=== PATIENT | male | born 1995 | race Caucasian/White ===

== ENCOUNTER 2023-04-18 20:16 | Emergency (ER) | payer BC, SELFPAY ==
--- OUTSIDE RECORDS SUMMARY | 2023-04-18 20:19 | XMS REPORT | Continuity of Care Document ---
:1995 Author Organization [facility] t Address [address] [place] [address] [place] [id number] Care Team Providers Name Role Phone Lab, Adc Fam Pob I Attending Clinician Unavailable Ngozi Tan Attending Clinician NGOZI GARCIA Attending Clinician Unavailable Doctor Unassigned, Hale Attending Clinician Unavailable Payers Payer Name Policy Type Policy Number Effective Date Expiration Date S [facility] [id number] 2017 00:00:00 Problems Condition Condition Condition Status Onset Resolution Last Treating Co mments Source Name Details Category Date Date Treatment Clinician Date No known No known Disease Unive rs active active ity of problems problems [facility] Allergies, Adverse Reactions, Alerts Allergy Allergy Status Severity Reaction(s) Onset Inactive Treating Comm ents Source Name Type Date Date Clinician NO KNOWN Drug Active Univers ALLERGIE Class ity of S [facility] Social History Social Habit Start Date Stop Date Quantity Comments Source Exposure to Yes [facility] SARS-CoV-2 (event) Medica l Branch Tobacco use and 2018-11-07 2018-11-07 Never used [facility] exposure 00:00:00 00:00:00 [facility] Sex Assigned At [birth year] [facility] 00:00:00 00:00:00 [facility] Smoking Status Start Date Stop Date Source Never smoker [facility] Medications Ordered Filled Start Stop Current Ordering Indication Dosage Frequency Signature Comments Components Source Medication Medication Date Date Medication? Clinician (SIG) Name Name azithromshanicei Yes [id number] 500mg Take 1 Univers n 500 mg 5-17 tablet by ity of tablet 00:00: mouth [place] 00 daily. Medical Branch azithromyci Yes [id number] 500mg Take 1 Univers n 500 mg 5-17 tablet by ity of tablet 00:00: mouth [place] 00 daily. Medical Branch metoclopram 2019-0 Yes [id number] 1 tab Univers jacquelyn HCl 10 5-12 every 4hr ity of mg tablet 00:00: as needed Louie as 00 for nausea Medical Branch metoclopram 2018-0 Yes [id number] 1 tab Univers jacquelyn HCl 10 5-12 every 4hr ity of mg tablet 00:00: as needed Louie as 00 for nausea Medical Branch Procedures Procedure Date / Time Performed Performing Clinician [facility] e ASSIGNMENT OF BENEFITS 2021-02-11 01:21:46 Doctor Unassigned, No [facility] Encounters Start End Encounter Admission Attending Care Care Encounter Source Date/Time Date/Time Type Type Clinicians Facility Department ID 2021-02-10 2021-02-10 Laboratory Lab, [facility] Anupam Pob I [facility] [id number] Univers 20:22:14 20:42:14 Only Ngozi Garcia [facility] [id number] ity of [place] [id number] Louie as Professio [id number] [place] [address] Office [address] 2021-02-10 2021-02-10 Outpatient R JOSE [facility] [id number] Univers 20:20:00 20:20:00 NGOZI garcia f [facility] 2021-02-10 2021-02-10 Orders Doctor HU [id number] Univers 00:00:00 00:00:00 Only UnassLYLA purdy [id number] [facility] [id number] Louie as [id number] [address] 2021-01-12 2021-01-12 Outpatient R [facility] [id number] Univers 10:00:00 10:00:00 ity of [facility] Results This patient has no known results.
[2023-04-18] MEDS ORDERED: NA CHLORIDE 0.9% 1,000 ML ONE (21:21)
[2023-04-18 21:38] LABS: Absolute Lymphocytes (CBC) 0.4 K/uL (0.7-4.9); Hematocrit 44.8 % (39.6-49.0); Lymphocytes % 5.1 % (15.3-44.8); MCV 85.2 fL (80-100); MPV 7.3 fL (7.6-11.3); Platelets 254 thou/uL (152-406); RBC Red Blood Cell Count 5.26 M/uL (4.33-5.43)
[2023-04-18 21:57] LABS: Albumin 3.9 g/dL (3.4-5.0); Bilirubin Total 1.2 mg/dL (0.2-1.0); Potassium 3.7 mEq/L (3.5-5.1)
--- NOTE | 2023-04-18 22:23 | ER ---
Nurse's Notes [facility] Name: Manuel Lira Jr Age: 28 yrs Sex: Male : 1995 Arrival Date: 04/18/2023 Time: 20:16 Bed 10 Private MD: Diagnosis: Volume depletion, unspecified;Acute gastritis without bleeding Presentation: 04/18 20:24 Chief complaint: Patient states: he was drinking last night, woke up this morning not ap3 feeling well. 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 patient then reports he vomited, and "just hasn't been feeling well" Patient also reports bilateral leg pain. Coronavirus screen: At this time, the client does not indicate any symptoms associated with coronavirus-19. Ebola Screen: No symptoms or risks identified at this time. Initial Sepsis Screen: Does the patient meet any 2 criteria? No. Patient's initial sepsis screen is negative. Does the patient have a suspected source of infection? No. Patient's initial sepsis screen is negative. Risk Assessment: Do you want to hurt yourself or someone else? Patient reports no desire to harm self or others. Onset of symptoms was April 18, 2023. 20:24 Method Of Arrival: Ambulatory ap3 20:24 Acuity: ALIDA 3 ap3 Triage Assessment: 20:26 General: Appears in no apparent distress. Behavior is calm, cooperative, appropriate ap3 for age. Pain: Complains of pain in right leg and left leg Pain currently is 5 out of 10 on a pain scale. Pain began this morning. Neuro: Level of Consciousness is awake, alert, obeys commands, Oriented to person, place, time, situation. Historical: - Allergies: 20:26 No Known Allergies; ap3 - Home Meds: 20:26 None [Active]; ap3 - PMHx: 20:26 None; ap3 - Immunization history:: Client reports having NOT received the Covid vaccine. Flu vaccine is not up to date. - Social history:: Smoking status: Patient denies any tobacco usage or history of. Patient uses alcohol. Screenin:27 [facility] ED Fall Risk Assessment (Adult) History of falling in the last 3 months, ap3 including since admission No falls in past 3 months (0 pts). Abuse screen: Denies threats or abuse. Nutritional screening: No deficits noted. Tuberculosis screening: No symptoms or risk factors identified. Assessment: 23:22 General: Appears uncomfortable, well groomed, well developed, well nourished, Behavior me1 is calm, cooperative, appropriate for age, Reports was drinking last night and woke up not feeling well. 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 States he just hasn't felt well today in general." c/o bilateral leg pain. Pain: Complains of pain in right leg and left leg Pain does not radiate. Pain currently is 6 out of 10 on a pain scale. Quality of pain is described as crampy, Pain began this morning Is intermittent. Neuro: Level of Consciousness is awake, alert, obeys commands, Oriented to person, place, time, situation, Appropriate for age. Cardiovascular: Capillary refill < 3 seconds Patient's skin is warm and dry. Respiratory: Airway is patent Respiratory effort is even, unlabored, Respiratory pattern is regular, symmetrical. GI: Reports nausea, vomiting, this morning. Vital Signs: 20:24 BP 120 / 69; Pulse 90; Resp 17; Temp 98.6; Pulse Ox 99% ; Weight 74.84 kg; Pain 5/10; ap3 22:00 BP 118 / 74; Pulse 86; Resp 16; Pulse Ox 100% on R/A; me1 22:30 BP 119 / 78; Pulse 89; Resp 17; Pulse Ox 99% on R/A; me1 22:30 BP 115 / 68; Pulse 88; Resp 15; Pulse Ox 100% on R/A; me1 20:24 Pain Scale: Adult ap3 ED Course: 20:19 Patient arrived in ED. ag3 20:23 Florence Johnson FNP-C is PHCP. snw 20:23 Abhinav Zapata DO is Attending Physician. snw 20:26 Triage completed. ap3 20:27 Arm band placed on left wrist. ap3 21:01 Paola Mcginnis, HOLA is Primary Nurse. me1 21:24 Inserted saline lock: 20 gauge in right antecubital area, using aseptic technique. me1 21:24 CBC with Diff Sent. me1 21:24 CMP Sent. me1 21:24 Lipase Sent. me1 22:37 Urinalysis w/ reflexes Sent. me1 23:22 Patient has correct armband on for positive identification. Bed in low position. Call me1 light in reach. Side rails up X 1. Provided Education on: POC. Verbalized understanding. . 23:22 No provider procedures requiring assistance completed. me1 23:36 IV discontinued, intact, bleeding controlled, No redness/swelling at site. Pressure me1 dressing applied. Administered Medications: 21:24 Drug: NS 0.9% IV 1000 ml IV at 1 bolus Per protocol; 1000 mL bolus Route: IV; Rate: 1 me1 bolus; Site: right antecubital; 22:37 Follow up: IV Status: Completed infusion; IV Intake: 1000ml me1 22:37 Drug: Pantoprazole IVP 40 mg IVP once Route: IVP; Site: right antecubital; me1 23:21 Follow up: Response: No adverse reaction me1 22:37 Drug: NS 0.9% IV 500 ml IV at bolus once Route: IV; Rate: bolus; Site: right me1 antecubital; 23:21 Follow up: IV Status: Completed infusion me1 Medication: 23:22 VIS not applicable for this client. me1 Intake: 22:37 IV: 1000ml; Total: 1000ml. me1 Outcome: 22:22 Discharge ordered by . snw 23:36 Discharged to home ambulatory, me1 23:36 Condition: stable 23:36 Discharge instructions given to patient, friend, Instructed on discharge instructions, follow up and referral plans. medication usage, Demonstrated understanding of instructions, follow-up care, medications, Prescriptions given X 2, 23:37 Patient left the ED. me1 Signatures: Florence Johnson, CHOLO-C [employer]OUNTED [employer]ICE OFFICER-Csnw Monica Miller RN RN andres3 Carin Ash 3 Paola Mcginnis RN RN me1
--- NOTE | 2023-04-18 22:23 | EDPHYS ---
Physician Documentation [facility] Name: Manuel Lira Jr Age: 28 yrs Sex: Male : 1995 Arrival Date: 04/18/2023 Time: 20:16 Bed 10 Private MD: ED Physician Abhinav Zapata HPI: 04/18 22:25 This 28 yrs old Male presents to ER via Ambulatory with complaints of Leg Pain. snw 22:25 The patient presents with pain, that is acute. The complaints affect the left leg and snw right leg. Context: The problem was sustained at home, resulted from pt was drinking last pm, vomiting this am, had to go assistant baseball coach, pt c/o leg cramps and vomiting. Residual abdominal pain since. Onset: The symptoms/episode began/occurred acutely. Associated signs and symptoms: Pertinent positives: calf tenderness, nausea, cramping. Treatment prior to arrival includes: no previous treatment. Severity of symptoms: At their worst the symptoms were moderate. It is unknown whether or not the patient has had similar symptoms in the past. The patient has not recently seen a physician. pt c/o abdominal pain in ED but no pain on palpation, pt has not vomited again since this am. Historical: - Allergies: 20:26 No Known Allergies; ap3 - Home Meds: 20:26 None [Active]; ap3 - PMHx: 20:26 None; ap3 - Immunization history:: Client reports having NOT received the Covid vaccine. Flu vaccine is not up to date. - Social history:: Smoking status: Patient denies any tobacco usage or history of. Patient uses alcohol. ROS: 22:20 Constitutional: Negative for fever, chills, and weight loss, Eyes: Negative for injury, snw pain, redness, and discharge, ENT: Negative for injury, pain, and discharge, Neck: Negative for injury, pain, and swelling, Cardiovascular: Negative for chest pain, palpitations, and edema, Respiratory: Negative for shortness of breath, cough, wheezing, and pleuritic chest pain, 22:20 Back: Negative for injury and pain, : Negative for injury, bleeding, discharge, and swelling, Skin: Negative for injury, rash, and discoloration, Neuro: Negative for headache, weakness, numbness, tingling, and seizure, Psych: Negative for depression, anxiety, suicide ideation, homicidal ideation, and hallucinations, 22:20 Abdomen/GI: Positive for abdominal pain, nausea and vomiting, 22:20 MS/extremity: Positive for pain, of the left leg and right leg, Exam: 22:20 Constitutional: This is a well developed, well nourished patient who is awake, alert, snw and in no acute distress. Head/Face: Normocephalic, atraumatic. Eyes: Pupils equal round and reactive to light, extra-ocular motions intact. Lids and lashes normal. Conjunctiva and sclera are non-icteric and not injected. Cornea within normal limits. Periorbital areas with no swelling, redness, or edema. ENT: Nares patent. No nasal discharge, no septal abnormalities noted. Tympanic membranes are normal and external auditory canals are clear. Oropharynx with no redness, swelling, or masses, exudates, or evidence of obstruction, uvula midline. Mucous membranes moist. Neck: Trachea midline, no thyromegaly or masses palpated, and no cervical lymphadenopathy. Supple, full range of motion without nuchal rigidity, or vertebral point tenderness. No Meningismus. Chest/axilla: Normal chest wall appearance and motion. Nontender with no deformity. No lesions are appreciated. Cardiovascular: Regular rate and rhythm with a normal S1 and S2. No gallops, murmurs, or rubs. Normal PMI, no JVD. No pulse deficits. Respiratory: Lungs have equal breath sounds bilaterally, clear to auscultation and percussion. No rales, rhonchi or wheezes noted. No increased work of breathing, no retractions or nasal flaring. Back: No spinal tenderness. No costovertebral tenderness. Full range of motion. Skin: Warm, dry with normal turgor. Normal color with no rashes, no lesions, and no evidence of cellulitis. Neuro: Awake and alert, GCS 15, oriented to person, place, time, and situation. Cranial nerves II-XII grossly intact. Motor strength 5/5 in all extremities. Sensory grossly intact. Cerebellar exam normal. Normal gait. Psych: Awake, alert, with orientation to person, place and time. Behavior, mood, and affect are within normal limits. 22:20 Abdomen/GI: Inspection: abdomen appears normal, Bowel sounds: normal, Palpation: abdomen is soft and non-tender, 22:20 Musculoskeletal/extremity: Extremities: all appear grossly normal, with no appreciated pain with palpation, ROM: no acute changes, Circulation is intact in all extremities. Sensation intact. Vital Signs: 20:24 BP 120 / 69; Pulse 90; Resp 17; Temp 98.6; Pulse Ox 99% ; Weight 74.84 kg; Pain 5/10; ap3 22:00 BP 118 / 74; Pulse 86; Resp 16; Pulse Ox 100% on R/A; me1 22:30 BP 119 / 78; Pulse 89; Resp 17; Pulse Ox 99% on R/A; me1 22:30 BP 115 / 68; Pulse 88; Resp 15; Pulse Ox 100% on R/A; me1 20:24 Pain Scale: Adult ap3 MDM: 21:05 Patient medically screened. snw 22:00 ED course: Pt still drained, unable to give urine. C/o abd discomfort. snw 22:23 Differential diagnosis: dehydration, electrolyte imbalance. muscle cramps, ETOH misuse, snw gastritis. Data reviewed: vital signs, nurses notes, lab test result(s). I considered the following discharge prescriptions or medication management in the emergency department Medications were administered in the Emergency Department. See MAR. Counseling: I had a detailed discussion with the patient and/or guardian regarding the historical points, exam findings, and any diagnostic results supporting the discharge/admit diagnosis, lab results, the need for outpatient follow up, for definitive care, to return to the emergency department if symptoms worsen or persist or if there are any questions or concerns that arise at home. Special discussion: Based on the patient's Hx, exam, and Dx evaluation, there is no indication for emergent surgery or inpatient Tx. It is understood by the patient/guardian that if the Sx's persist or worsen they need to return immediately for re-evaluation. Based on the history and exam findings, there is no indication for further emergent testing or inpatient evaluation. I discussed with the patient/guardian the need to see the primary care provider for further evaluation of the symptoms. 23:00 ED course: Urine with specific gravity greater than 1.030, volume depletion. Pt states snw he feels much better post medications and IVF.. 04/18 20:54 Order name: CBC with Diff; Complete Time: 21:42 snw 04/18 20:54 Order name: CMP; Complete Time: 21:58 snw 04/18 20:54 Order name: Lipase; Complete Time: 21:58 snw 04/18 20:54 Order name: Urinalysis w/ reflexes; Complete Time: 23:07 snw 04/18 20:54 Order name: IV Saline Lock; Complete Time: 21:24 snw 04/18 20:54 Order name: Labs collected and sent; Complete Time: 21:24 snw Administered Medications: 21:24 Drug: NS 0.9% IV 1000 ml IV at 1 bolus Per protocol; 1000 mL bolus Route: IV; Rate: 1 me1 bolus; Site: right antecubital; 22:37 Follow up: IV Status: Completed infusion; IV Intake: 1000ml me1 22:37 Drug: Pantoprazole IVP 40 mg IVP once Route: IVP; Site: right antecubital; me1 23:21 Follow up: Response: No adverse reaction me1 22:37 Drug: NS 0.9% IV 500 ml IV at bolus once Route: IV; Rate: bolus; Site: right me1 antecubital; 23:21 Follow up: IV Status: Completed infusion me1 Disposition: 04/19 01:58 I was immediately available on-site in the Emergency Department for consultation in the ms3 care of the patient. Disposition Summary: 04/18/23 22:22 Discharge Ordered Notes: Location: Home snw Condition: Stable snw Diagnosis - Volume depletion, unspecified snw - Acute gastritis without bleeding snw Followup: snw - With: Emergency Department - When: As needed - Reason: Worsening of condition Followup: snw - With: Private Physician - When: 2 - 3 days - Reason: Recheck today's complaints, Continuance of care, Re-evaluation by your physician Discharge Instructions: - Discharge Summary Sheet snw - Dehydration, Adult snw - Gastritis, Adult snw - Rehydration, Adult snw Forms: - Work release form snw - Medication Reconciliation Form snw - Thank You Letter snw - Antibiotic Education snw - Prescription Opioid Use snw - Patient Portal Instructions snw - Leadership Thank You Letter snw Prescriptions: - Protonix 40 mg Oral Tablet - take 1 tablet ORAL route once daily; 30 tablet; Refills: 0, Product Selection snw Permitted - promethazine 25 mg Oral tablet - take 1 tablet ORAL route every 6 hours As needed; 10 tablet; Refills: 0, snw Product Selection Permitted Signatures: Dispatcher [employer] EDMS Florence Johnson, BOILER SERVICE TECHNICIAN-C BOILER SERVICE TECHNICIAN-Csnw Monica Miller, RN RN ap3 Abhinav Zapata DO DO ms3 Paola Mcginnis RN RN me1
[2023-04-18] MEDS ORDERED: PANTOPRAZOLE 40 MG INJ ONE (22:40)
[2023-04-18] MEDS ORDERED: NA CHLORIDE 0.9% 500 ML ONE (22:41)
[2023-04-18 22:44] LABS: Specific Gravity > 1.030 (1.005-1.030); Urine Bacteria None Seen /HPF (<20); Urine Bilirubin NEGATIVE (Negative); Urine Blood Negative (Negative); Urine Clarity Clear (Clear); Urine Color Yellow (Yellow); Urine Glucose NEGATIVE (Negative); Urine Mucus 1+ /HPF (None Seen); Urine Protein TRACE (Negative); Urine RBC <5 /HPF (None Seen); Urine Urobilinogen 1+ (Normal); Urine pH 5.5 (5.0-7.0)
== END 2023-04-18 23:37 | disposition home or self-care (01) ==
LOC: ER 20:16
DX: E86.9 Volume depletion, unspecified (principal); K29.00 Acute gastritis without bleeding
CPT/HCPCS: 36415; 80053; 81001; 83690; 85025; 96361; 96374; 99284; C9113; J7030; J7040